=== PATIENT | male | born 1935 | race Caucasian/White ===

== ENCOUNTER 2022-11-06 19:10 | Inpatient (IN) | payer MEDICARE, OTHER ==
[2022-11-06 19:52] LABS: #Basophils 0.1 10x3/uL (0.0-0.2); #Monocytes 1.1 10x3/uL (0.0-1.1); #Neutrophils 6.2 10x3/uL (1.5-8.4); %Basophils 0.6 % (0.0-2.0); %Eosinophils 0.1 % (0.0-6.0); %Lymphocytes 8.3 % (18.0-47.0); %Monocytes 14.1 % (0.0-10.0); %Neutrophils 76.4 % (40.0-75.0); Hemoglobin 13.6 g/dL (13.5-17.5); Mean Corpuscular HGB CONC 32.2 g/dL (32.0-36.0); Mean Corpuscular Hemoglobin 29.4 pg (27.0-33.0); Mean Corpuscular Volume 91.1 fl (81.2-95.1); Mean Platelet Volume 10.4 fl (7.4-10.4); Platelet Count 238 10x3/uL (150-450); RBC Distribution Width 13.5 % (11.5-14.5); Red Blood Cell (RBC) Count 4.63 10x6/uL (4.32-5.72); White Blood Cell (WBC) Count 8.1 10x3/uL (3.5-10.5)
[2022-11-06 20:05] LABS: ALT (SGPT) 14 U/L (8-55); AST (SGOT) 21 U/L (5-34); Albumin 4.1 g/dL (3.4-4.8); Alkaline Phosphatase 88 U/L (40-110); Anion Gap 17 mmol/L (10-20); BUN (Urea Nitrogen) 20 mg/dL (8.4-25.7); Bilirubin, Total 0.3 mg/dL (0.2-1.2); CK (CPK) 136 U/L (30-200); Calc. Creatinine Clearance 0 mL/min (70-130); Calcium 8.7 mg/dL (7.8-10.44); Carbon Dioxide 20 mmol/L (23-31); Chloride 105 mmol/L (98-107); Estimated GFR 46; Globulin 2.8 g/dL (2.4-3.5); Glucose 137 mg/dL (83-110); Protein, Total 6.9 g/dL (5.8-8.1); Sodium 138 mmol/L (136-145)
[2022-11-06 23:08] LABS: Bilirubin Neg (Negative); Blood, Urine Negative (Negative); Glucose, Urine (Dipstick) Normal (Negative); Ketone, Urine Negative (Negative); Leukocyte Negative (Negative); Nitrite Negative (Negative); Protein, Urine (Dipstick) 15 mg/dl (Neg-Trace); Urobilinogen Normal mg/dL (Less than 2)
[2022-11-06 23:09] LABS: Clarity Clear (Clear)
[2022-11-07 03:48] VITALS: BMI 32.9
[2022-11-07] MEDS ORDERED: Ondansetron ODT 4 MG TAB PO PRN (06:03)
[2022-11-07] MEDS ORDERED: Ondansetron PF 4 MG/2 ML Vial IVP PRN (06:03)
[2022-11-07 07:21] LABS: #Neutrophils 5.5 10x3/uL (1.5-8.4); %Basophils 0.5 % (0.0-2.0); %Eosinophils 0.5 % (0.0-6.0); %Lymphocytes 10.6 % (18.0-47.0); %Monocytes 13.4 % (0.0-10.0); %Neutrophils 74.6 % (40.0-75.0); Hemoglobin 12.9 g/dL (13.5-17.5); Mean Corpuscular HGB CONC 32.7 g/dL (32.0-36.0); Mean Corpuscular Hemoglobin 29.9 pg (27.0-33.0); Mean Corpuscular Volume 91.4 fl (81.2-95.1); Mean Platelet Volume 10.7 fl (7.4-10.4); Platelet Count 202 10x3/uL (150-450); RBC Distribution Width 13.7 % (11.5-14.5); Red Blood Cell (RBC) Count 4.32 10x6/uL (4.32-5.72); White Blood Cell (WBC) Count 7.4 10x3/uL (3.5-10.5)
[2022-11-07 07:28] LABS: Anion Gap 18 mmol/L (10-20); BUN (Urea Nitrogen) 20 mg/dL (8.4-25.7); Calc. Creatinine Clearance 56 mL/min (70-130); Calcium 8.7 mg/dL (7.8-10.44); Carbon Dioxide 20 mmol/L (23-31); Chloride 104 mmol/L (98-107); Estimated GFR 48; Glucose 120 mg/dL (83-110); Potassium 3.8 mmol/L (3.5-5.1); Sodium 138 mmol/L (136-145)
[2022-11-07] MEDS: NS 0.9% w/ 20 MEQ KCL 1,000 ML/1,000 ML BAG IV SCH ×2 (07:47→22:48)
[2022-11-07 07:49] LABS: CRP (Inflammatory) 1.85 mg/dL (= or < 0.5)
[2022-11-07] MEDS ORDERED: REMDESIVIR 200 MG in Sodium Chloride 0.9% 250 ML 250 ML IV SCH (09:00)
[2022-11-07] MEDS: Dexamethasone 4 mg/ml Vial SLOW IVP SCH (09:53)
[2022-11-07] MEDS: Zinc Sulfate 220 MG CAP PO SCH (09:53)
[2022-11-07] MEDS: Ascorbic Acid 500 mg Chewable Tablet PO SCH (09:54)
[2022-11-07] MEDS: Aspirin 81 mg Enteric Coated Tablet PO SCH (09:54)
[2022-11-07] MEDS: Cholecalciferol 1,000 UNITS (25 MCG) TAB PO SCH (09:54)
[2022-11-07] MEDS ORDERED: Sodium Chloride 0.9% 250 ML 250 ML IVPB SCH (19:30)
[2022-11-07] MEDS: Atorvastatin Calcium 10 MG TAB PO SCH (20:42)
[2022-11-07] MEDS ORDERED: NS 0.9% w/ 20 MEQ KCL 1,000 ML ONE (22:45)
[2022-11-08 08:53] LABS: #Monocytes 0.7 10x3/uL (0.0-1.1); #Neutrophils 4.7 10x3/uL (1.5-8.4); %Basophils 0.3 % (0.0-2.0); %Eosinophils 0.2 % (0.0-6.0); %Lymphocytes 16.6 % (18.0-47.0); %Neutrophils 71.6 % (40.0-75.0); Hemoglobin 13.3 g/dL (13.5-17.5); Mean Corpuscular HGB CONC 32.6 g/dL (32.0-36.0); Mean Corpuscular Hemoglobin 30.3 pg (27.0-33.0); Mean Corpuscular Volume 92.9 fl (81.2-95.1); Mean Platelet Volume 10.3 fl (7.4-10.4); Platelet Count 173 10x3/uL (150-450); RBC Distribution Width 13.3 % (11.5-14.5); Red Blood Cell (RBC) Count 4.39 10x6/uL (4.32-5.72); White Blood Cell (WBC) Count 6.6 10x3/uL (3.5-10.5)
[2022-11-08 09:31] LABS: ALT (SGPT) 16 U/L (8-55); AST (SGOT) 42 U/L (5-34); Albumin 3.4 g/dL (3.4-4.8); Alkaline Phosphatase 73 U/L (40-110); Anion Gap 13 mmol/L (10-20); BUN (Urea Nitrogen) 23 mg/dL (8.4-25.7); Bilirubin, Total 0.2 mg/dL (0.2-1.2); Calc. Creatinine Clearance 65 mL/min (70-130); Calcium 8.4 mg/dL (7.8-10.44); Carbon Dioxide 23 mmol/L (23-31); Chloride 106 mmol/L (98-107); Estimated GFR 58; Globulin 2.7 g/dL (2.4-3.5); Glucose 88 mg/dL (83-110); Protein, Total 6.1 g/dL (5.8-8.1); Sodium 138 mmol/L (136-145)
[2022-11-08] MEDS: Ventolin HFA Inhaler 60 PUFF INHALER INH PRN (10:17)
[2022-11-08] MEDS: NS 0.9% w/ 20 MEQ KCL 1,000 ML/1,000 ML BAG IV SCH (10:52)
[2022-11-08] MEDS: REMDESIVIR 100 MG in Sodium Chloride 0.9% 250 ML 250 ML IV SCH (10:53)
[2022-11-08] MEDS: Dexamethasone 4 mg/ml Vial SLOW IVP SCH (10:59)
[2022-11-08] MEDS: Lisinopril 10 MG TAB PO SCH (11:04)
[2022-11-08] MEDS: Cholecalciferol 1,000 UNITS (25 MCG) TAB PO SCH (11:05)
[2022-11-08] MEDS: Ascorbic Acid 500 mg Chewable Tablet PO SCH (11:05)
[2022-11-08] MEDS: Zinc Sulfate 220 MG CAP PO SCH (11:05)
[2022-11-08] MEDS: Aspirin 81 mg Enteric Coated Tablet PO SCH (11:05)
[2022-11-08] MEDS: Fluticasone Propionate Nasal Spray 16 gm Bottle NASAL SCH (11:06)
[2022-11-08] MEDS: Acetaminophen 325 MG TAB PO PRN ×2 (14:05→17:26)
[2022-11-08] MEDS: Atorvastatin Calcium 10 MG TAB PO SCH (21:22)
[2022-11-09] MEDS: Ventolin HFA Inhaler 60 PUFF INHALER INH PRN ×4 (03:29→18:49)
[2022-11-09] MEDS: Acetaminophen 325 MG TAB PO PRN ×2 (04:47→11:52)
[2022-11-09 07:38] LABS: ALT (SGPT) 19 U/L (8-55); AST (SGOT) 41 U/L (5-34); Albumin 3.3 g/dL (3.4-4.8); Alkaline Phosphatase 67 U/L (40-110); Anion Gap 13 mmol/L (10-20); BUN (Urea Nitrogen) 22 mg/dL (8.4-25.7); Bilirubin, Total 0.2 mg/dL (0.2-1.2); Calc. Creatinine Clearance 66 mL/min (70-130); Calcium 8.4 mg/dL (7.8-10.44); Carbon Dioxide 21 mmol/L (23-31); Chloride 104 mmol/L (98-107); Estimated GFR 59; Globulin 2.9 g/dL (2.4-3.5); Glucose 104 mg/dL (83-110); Protein, Total 6.2 g/dL (5.8-8.1); Sodium 134 mmol/L (136-145)
[2022-11-09] MEDS: Dexamethasone 4 mg/ml Vial SLOW IVP SCH (09:59)
[2022-11-09] MEDS: Lisinopril 10 MG TAB PO SCH (09:59)
[2022-11-09] MEDS: Cholecalciferol 1,000 UNITS (25 MCG) TAB PO SCH (09:59)
[2022-11-09] MEDS: Fluticasone Propionate Nasal Spray 16 gm Bottle NASAL SCH (09:59)
[2022-11-09] MEDS: Aspirin 81 mg Enteric Coated Tablet PO SCH (09:59)
[2022-11-09] MEDS: Ascorbic Acid 500 mg Chewable Tablet PO SCH (09:59)
[2022-11-09] MEDS: Zinc Sulfate 220 MG CAP PO SCH (10:00)
[2022-11-09] MEDS: REMDESIVIR 100 MG in Sodium Chloride 0.9% 250 ML 250 ML IV SCH (10:00)
[2022-11-09] MEDS: Benzonatate 100 MG CAP PO SCH ×2 (15:32→20:42)
[2022-11-09] MEDS: Atorvastatin Calcium 10 MG TAB PO SCH (20:42)
[2022-11-09] MEDS: guaiFENesin/DM ER PO SCH (20:43)
[2022-11-10 06:04] LABS: ALT (SGPT) 17 U/L (8-55); AST (SGOT) 30 U/L (5-34); Albumin 3.2 g/dL (3.4-4.8); Alkaline Phosphatase 65 U/L (40-110); Anion Gap 12 mmol/L (10-20); BUN (Urea Nitrogen) 28 mg/dL (8.4-25.7); Bilirubin, Total 0.3 mg/dL (0.2-1.2); Calc. Creatinine Clearance 66 mL/min (70-130); Calcium 8.6 mg/dL (7.8-10.44); Carbon Dioxide 22 mmol/L (23-31); Chloride 106 mmol/L (98-107); Estimated GFR 59; Globulin 2.9 g/dL (2.4-3.5); Glucose 124 mg/dL (83-110); Protein, Total 6.1 g/dL (5.8-8.1); Sodium 136 mmol/L (136-145)
[2022-11-10] MEDS: Ventolin HFA Inhaler 60 PUFF INHALER INH PRN ×3 (07:55→19:16)
[2022-11-10] MEDS: Cholecalciferol 1,000 UNITS (25 MCG) TAB PO SCH (09:33)
[2022-11-10] MEDS: Dexamethasone 4 mg/ml Vial SLOW IVP SCH (09:33)
[2022-11-10] MEDS: Lisinopril 10 MG TAB PO SCH (09:33)
[2022-11-10] MEDS: Benzonatate 100 MG CAP PO SCH ×3 (09:33→21:30)
[2022-11-10] MEDS: Aspirin 81 mg Enteric Coated Tablet PO SCH (09:33)
[2022-11-10] MEDS: Ascorbic Acid 500 mg Chewable Tablet PO SCH (09:34)
[2022-11-10] MEDS: Zinc Sulfate 220 MG CAP PO SCH (09:37)
[2022-11-10] MEDS: REMDESIVIR 100 MG in Sodium Chloride 0.9% 250 ML 250 ML IV SCH (09:37)
[2022-11-10] MEDS: guaiFENesin/DM ER PO SCH ×2 (09:37→21:30)
[2022-11-10] MEDS: Fluticasone Propionate Nasal Spray 16 gm Bottle NASAL SCH (09:37)
[2022-11-10] MEDS: Atorvastatin Calcium 10 MG TAB PO SCH (21:29)
[2022-11-11 05:07] LABS: Anion Gap 12 mmol/L (10-20); BUN (Urea Nitrogen) 32 mg/dL (8.4-25.7); Calc. Creatinine Clearance 71 mL/min (70-130); Carbon Dioxide 22 mmol/L (23-31); Chloride 107 mmol/L (98-107); Potassium 4.2 mmol/L (3.5-5.1); Sodium 137 mmol/L (136-145)
[2022-11-11 05:08] LABS: ALT (SGPT) 16 U/L (8-55); AST (SGOT) 20 U/L (5-34); Alkaline Phosphatase 66 U/L (40-110); Bilirubin, Total 0.2 mg/dL (0.2-1.2); Calcium 8.6 mg/dL (7.8-10.44); Estimated GFR 64; Globulin 2.8 g/dL (2.4-3.5); Glucose 158 mg/dL (83-110); Protein, Total 5.8 g/dL (5.8-8.1)
[2022-11-11] MEDS: REMDESIVIR 100 MG in Sodium Chloride 0.9% 250 ML 250 ML IV SCH (09:13)
[2022-11-11] MEDS: Benzonatate 100 MG CAP PO SCH (09:13)
[2022-11-11] MEDS: Aspirin 81 mg Enteric Coated Tablet PO SCH (09:14)
[2022-11-11] MEDS: Cholecalciferol 1,000 UNITS (25 MCG) TAB PO SCH (09:14)
[2022-11-11] MEDS: guaiFENesin/DM ER PO SCH (09:14)
[2022-11-11] MEDS: Ascorbic Acid 500 mg Chewable Tablet PO SCH (09:14)
[2022-11-11] MEDS: Lisinopril 10 MG TAB PO SCH (09:14)
[2022-11-11] MEDS: Zinc Sulfate 220 MG CAP PO SCH (09:14)
[2022-11-11] MEDS: Dexamethasone 4 mg/ml Vial SLOW IVP SCH (09:15)
[2022-11-11] MEDS: Fluticasone Propionate Nasal Spray 16 gm Bottle NASAL SCH (10:57)
[2022-11-11 11:10] VITALS: BP 129/63; TEMP 97.6
== END 2022-11-11 13:16 | disposition swing bed (61) | DRG 177 ==
LOC: CSHERS 19:10 → CSHTELE 11-07 01:35 → OBSVTOIN 11-07 06:03
PROVIDERS: ADMIT Family Medicine; ATTEND Internal Medicine
PROC: 8E0ZXY6 Isolation (ICD-10-PCS; principal; 2022-11-07)
PROC: XW033E5 Introduction of Remdesivir Anti-infective into Peripheral Vein, Percutaneous Approach, New Technology Group 5 (ICD-10-PCS; 2022-11-07)
DX: U07.1 COVID-19 (principal); J12.82 Pneumonia due to coronavirus disease 2019; J96.01 Acute respiratory failure with hypoxia; F03.90 Unspecified dementia, unspecified severity, without behavioral disturbance, psychotic disturbance, mood disturbance, and anxiety; I10 Essential (primary) hypertension; E66.9 Obesity, unspecified; Z79.899 Other long term (current) drug therapy; Z90.89 Acquired absence of other organs; Z98.1 Arthrodesis status; Z82.49 Family history of ischemic heart disease and other diseases of the circulatory system; Z83.3 Family history of diabetes mellitus; Z68.32 Body mass index [BMI] 32.0-32.9, adult; R53.81 Other malaise; E78.2 Mixed hyperlipidemia
CPT/HCPCS: 36415; 51701; 70450; 71045; 71250; 80048; 80053; 81003; 82550; 83605; 83735; 84484; 85025; 86140; 93005; 94664; 94667; 94668; 94760; 94799; J0248; J1100; J1650; J3480; J7050; U0003; U0005